=== PATIENT | female | born 1955 | race Caucasian/White ===

== ENCOUNTER → 2017-05-17 | Outpatient (CLI) | payer BC, OTHER | END | disposition home or self-care (01) | LOC: CFH 07:30 | PROVIDERS: ATTEND Nurse Practitioner Family | DX: Z12.31 Encounter for screening mammogram for malignant neoplasm of breast (principal) | CPT/HCPCS: 77063; G0202 ==

== ENCOUNTER 2020-03-23 09:49 | Outpatient (CLI) | payer MEDICARE | END 2020-03-23 23:59 | disposition home or self-care (01) | LOC: CFH 09:49 | PROVIDERS: ATTEND Physician Assistant | DX: R92.2 Inconclusive mammogram (principal) | CPT/HCPCS: 76641 ==

== ENCOUNTER 2020-08-17 07:52 | Emergency (ER) | payer MEDICARE ==
[~2020-08-17] VITALS: Ht 167.6 cm; Wt 106.3 kg
--- NOTE | 2020-08-17 08:32 | NUR ---
Pt believes her symptoms started Monday evening. Her symptoms of dizziness and nausea have been intermittent since then. Pt states she has "white coat syndrome" with elevated BP when she comes to the doctor. Pt describes herself as "being off." Connected to all monitors. Call light in reach.
[2020-08-17] MEDS ORDERED: SODIUM CHLORIDE FLUSH 10ML SYR IVF ONE (09:30)
[2020-08-17 09:48] LABS: BASOPHILS % (AUTO) 1 % (0-1); EOSINOPHILS % (AUTO) 1 % (1-7); LYMPHOCYTES % (AUTO) 30 % (22-44); MEAN CORPUSCULAR HEMOGLOBIN 27.5 pg (27.0-34.8); MEAN CORPUSCULAR HGB CONC 33.9 g/dL (32.4-35.8); MEAN PLATELET VOLUME 8.7 fL (7.4-10.4); MONOCYTES % (AUTO) 8 % (2-9); NEUTROPHILS % (AUTO) 59 % (42-75); PLATELET COUNT 121 x10^3/uL (130-400); RED BLOOD COUNT 4.79 x10^6/uL (3.82-5.3); RED CELL DISTRIBUTION WIDTH 13.5 % (9.6-15.2)
[2020-08-17 09:56] LABS: ALANINE AMINOTRANSFERASE 23 U/L (12-78); ALBUMIN 3.9 g/dL (3.4-5.0); ANION GAP 7 mmol/L (5-15); CALCIUM 8.7 mg/dL (8.5-10.1); CHLORIDE 109 mmol/L (98-107); CREATININE 0.91 mg/dL (0.55-1.02)
[2020-08-17 10:01] LABS: ALKALINE PHOSPHATASE 75 U/L (45-117); BILIRUBIN,TOTAL 0.4 mg/dL (0.2-1.0); TOTAL PROTEIN 7.3 g/dL (6.4-8.2); TROPONIN I < 0.015 ng/mL (0.000-0.045)
[2020-08-17 10:04] LABS: MICROSCOPIC INDICATED
[2020-08-17 10:23] LABS: MD SCAN
--- NOTE | 2020-08-17 11:12 | NUR ---
Pt resting comfortably in [facility], awaiting US.
--- NOTE | 2020-08-17 11:54 | NUR ---
This RN called both US and [facility] to inquire when pt would receive her imaging. Told that it was ordered "routine, so later in the day." MD Lopez made aware, order to be changed.
--- NOTE | 2020-08-17 12:43 | NUR ---
This RN called US again to inquire about US status. "She's next."
[2020-08-17 12:46] VITALS: BP 132/56
--- NOTE | 2020-08-17 12:56 | NUR ---
US at bedside.
== END 2020-08-17 14:30 | disposition home or self-care (01) ==
LOC: ED 08:51
DX: R42 Dizziness and giddiness (principal); R11.2 Nausea with vomiting, unspecified; R53.83 Other fatigue; R94.31 Abnormal electrocardiogram [ECG] [EKG]; R06.89 Other abnormalities of breathing; Z86.73 Personal history of transient ischemic attack (TIA), and cerebral infarction without residual deficits
CPT/HCPCS: 36415; 70450; 71045; 80053; 81001; 83605; 84484; 85025; 93005; 93880; 99285